=== PATIENT | male | born 1955 | race Caucasian/White ===

== ENCOUNTER 2022-07-19 06:48 | Day surgery (SDC) | payer MEDICARE, OTHER ==
[~2022-07-19 06:48] MED LIST: Lactated Ringers 1,000 ML IV SCH; Lidocaine 1%/Sod Bicarbonate in NS 8.4% 1 ML Syringe IDERM PRN; Sodium Chloride 0.9% 10 ML Syringe FLUSH PRN; Sodium Chloride 0.9% 10 ML Syringe FLUSH SCH
[2022-07-19] MEDS ORDERED: Lidocaine 1% 10 ML MDV ONE (07:20)
[2022-07-19] MEDS ORDERED: Bupivacaine 0.5% 30 ML SDV ONE (07:21)
[2022-07-19] MEDS ORDERED: fentaNYL 100 MCG/2 ML SDV ONE (07:22)
[2022-07-19] MEDS ORDERED: Midazolam 1 MG/ML 2 ML SDV ONE (07:22)
[2022-07-19] MEDS ORDERED: HYDROmorphone 0.5 MG/0.5 ML Syringe IVPUSH PRN (07:33)
[2022-07-19] MEDS ORDERED: Ondansetron 4 MG/2 ML SDV IVPUSH PRN (07:33)
[2022-07-19] MEDS ORDERED: fentaNYL 100 MCG/2 ML SDV IVPUSH PRN (07:33)
[2022-07-19] MEDS ORDERED: Vancomycin 1 GM SDV ONE (08:18)
[2022-07-19] MEDS ORDERED: Sodium Chloride 0.9% 100 ML ONE (08:33)
[2022-07-19] MEDS ORDERED: Acetaminophen/oxyCODONE 325-5 MG Tab PO SCH (11:23)
== END 2022-07-19 13:12 | disposition home or self-care (01) ==
LOC: JD.SDS 06:48
PROVIDERS: ATTEND Podiatrist Foot & Ankle Surgery
DX: E11.628 Type 2 diabetes mellitus with other skin complications (principal); M86.671 Other chronic osteomyelitis, right ankle and foot; L97.512 Non-pressure chronic ulcer of other part of right foot with fat layer exposed; I10 Essential (primary) hypertension; M19.90 Unspecified osteoarthritis, unspecified site; J44.9 Chronic obstructive pulmonary disease, unspecified; M10.9 Gout, unspecified; E66.01 Morbid (severe) obesity due to excess calories; M06.9 Rheumatoid arthritis, unspecified; Z79.899 Other long term (current) drug therapy; Z88.5 Allergy status to narcotic agent; Z91.018 Allergy to other foods; Z98.890 Other specified postprocedural states; Z68.41 Body mass index [BMI] 40.0-44.9, adult; Z87.891 Personal history of nicotine dependence; Z79.82 Long term (current) use of aspirin
CPT/HCPCS: 28110; 87070; 87075; 87077; 87186; 87205; 88304; 88311; A9270; C1713; J2250; J3010; J3370; J7120; 01480; 88302; J3490